=== PATIENT | female | born 1950 | race Hispanic/Latino ===

== ENCOUNTER 2017-05-24 19:14 | Inpatient (IN) | payer MEDICAID ==
[~2017-05-24] VITALS: Ht 152.4 cm; Wt 54.2 kg
[~2017-05-24 19:14] MED LIST: ESOM40CA PO; LINA145C PO; METF10004 PO; TYL3 PO
[2017-05-24 21:13] LABS: EOSINOPHILS % (AUTO) 0.4 % (0.0-8.0); HEMATOCRIT 32.1 % (36-48); LYMPHOCYTES % (AUTO) 12.4 % (21.0-51.0); MEAN CORPUSCULAR HEMOGLOBIN 31.8 pg (27.0-33.0); MEAN CORPUSCULAR HGB CONC 33.1 g/dL (32.0-36.0); MEAN CORPUSCULAR VOLUME 96.1 fL (79-99); MONOCYTES % (AUTO) 7.1 % (3.0-13.0); NEUTROPHILS % (AUTO) 79.1 % (40.0-77.0); PLATELET COUNT (AUTO) 447 K/uL (130-400); RED BLOOD CELL COUNT(AUTO) 3.34 MIL/uL (4.00-5.50); RED CELL DISTRIBUTION WIDTH 14.4 % (11.0-15.5); WHITE BLOOD COUNT (AUTO) 16.2 K/uL (4.8-10.8)
[2017-05-24 21:28] LABS: INR 0.89 (0.85-1.15); PARTIAL THROMBOPLASTIN TIME 31.8 SEC (26.3-35.5); PROTHROMBIN TIME 9.4 SEC (9.6-11.6)
[2017-05-24 21:41] LABS: ALBUMIN 2.8 g/dL (3.5-5.0); BILIRUBIN,TOTAL 0.8 mg/dL (0.2-1.0); CREATINE KINASE MB 0.8 ng/mL (0.5-3.6); POTASSIUM 4.4 mmol/L (3.5-5.1); TOTAL PROTEIN, SERUM 7.8 g/dL (6.0-8.3)
[2017-05-24] MEDS ORDERED: ONDANSETRON HCL 4 MG/2 ML VIAL ONE (22:54)
[2017-05-24] MEDS ORDERED: MORPHINE SULFATE 2 MG/ML 1ML SYG ONE (22:55)
[2017-05-24] MEDS ORDERED: SODIUM CHLORIDE 0.9% 500ML 500 ML IV ONE (22:55)
[2017-05-24] MEDS ORDERED: INSULIN HUMULIN R 100 UNIT/ML 3ML ONE (22:56)
[2017-05-25] VITALS (7 sets, daily range): BP systolic 133–184; BP diastolic 61–76
[2017-05-25 00:08] LABS: APPEARANCE,URINE Cloudy (CLEAR); BILIRUBIN,URINE Negative (NEGATIVE); COLOR,URINE Yellow (YELLOW); GLUCOSE, URINE (UA) >=1000 mg/dL (NEGATIVE); KETONES,URINE Negative (NEGATIVE); LEUKOCYTE ESTERASE ,URINE Negative (NEGATIVE); NITRATE,URINE Negative (NEGATIVE); OCCULT BLOOD,URINE Small (NEGATIVE); PH,URINE 5.5 (5.0-8.0); PROTEIN,URINE 300 (NEGATIVE)
[2017-05-25 00:14] LABS: EOSINOPHILS % (AUTO) 0.7 % (0.0-8.0); HEMATOCRIT 27.5 % (36-48); LYMPHOCYTES % (AUTO) 14.9 % (21.0-51.0); MEAN CORPUSCULAR HEMOGLOBIN 31.9 pg (27.0-33.0); MEAN CORPUSCULAR HGB CONC 33.3 g/dL (32.0-36.0); MEAN CORPUSCULAR VOLUME 95.8 fL (79-99); MONOCYTES % (AUTO) 7.9 % (3.0-13.0); NEUTROPHILS % (AUTO) 75.5 % (40.0-77.0); PLATELET COUNT (AUTO) 411 K/uL (130-400); RED BLOOD CELL COUNT(AUTO) 2.87 MIL/uL (4.00-5.50); RED CELL DISTRIBUTION WIDTH 14.5 % (11.0-15.5); WHITE BLOOD COUNT (AUTO) 17.3 K/uL (4.8-10.8)
[2017-05-25 00:17] LABS: BACTERIA,URINE Moderate /HPF (None Seen); SQUAMOUS EPITHELIAL CELL,UR Few /LPF (0-2)
[2017-05-25] MEDS ORDERED: CEFTRIAXONE SODIUM 1 GM ONE (01:43)
[2017-05-25] MEDS ORDERED: SODIUM CHLORIDE 0.9% 1000ML 1,000 ML IV ONE (01:44)
[2017-05-25] MEDS ORDERED: SODIUM CHLORIDE 0.9% 1000ML 1,000 ML IV SCH (02:33)
[2017-05-25] MEDS ORDERED: HYDRALAZINE HCL 20 MG/ML VIAL IV PRN (02:45)
[2017-05-25] MEDS ORDERED: LACTULOSE 20 GM/30 ML UDCUP PO PRN (02:45)
[2017-05-25] MEDS ORDERED: LIDOCAINE HCL-MPF 1% 2ML VIAL IVP PRN (02:45)
[2017-05-25] MEDS ORDERED: IPRATROPIUM/ALBUTEROL SULFATE 3 ML SOLUTION IH PRN (02:45)
[2017-05-25] MEDS ORDERED: POTASSIUM CHLORIDE 10% ELIXIR 20 MEQ/15 ML UDCUP PO PRN (02:45)
[2017-05-25] MEDS ORDERED: POTASSIUM CHLORIDE 20MEQ/100ML 100 ML IV PRN (02:45)
[2017-05-25] MEDS ORDERED: GLUCAGON 1MG KIT 1 MG ML IM PRN (02:45)
[2017-05-25] MEDS ORDERED: POTASSIUM CHLORIDE 20 MEQ ERTAB PO PRN (02:45)
[2017-05-25] MEDS ORDERED: CLONIDINE HCL 0.1 MG TABLET PO PRN (02:45)
[2017-05-25 03:58] LABS: BASOPHILS % (AUTO) 0.9 % (0.0-5.0); EOSINOPHILS % (AUTO) 1.3 % (0.0-8.0); LYMPHOCYTES % (AUTO) 17.3 % (21.0-51.0); MEAN CORPUSCULAR HEMOGLOBIN 31.6 pg (27.0-33.0); MEAN CORPUSCULAR VOLUME 95.7 fL (79-99); MONOCYTES % (AUTO) 7.4 % (3.0-13.0); NEUTROPHILS % (AUTO) 73.1 % (40.0-77.0); PLATELET COUNT (AUTO) 393 K/uL (130-400); RED BLOOD CELL COUNT(AUTO) 2.92 MIL/uL (4.00-5.50); RED CELL DISTRIBUTION WIDTH 14.3 % (11.0-15.5); WHITE BLOOD COUNT (AUTO) 15.5 K/uL (4.8-10.8)
[2017-05-25 04:02] LABS: CREATININE 0.9 mg/dL (0.5-1.5); POTASSIUM 3.8 mmol/L (3.5-5.1)
[2017-05-25 04:03] LABS: INR 0.92 (0.85-1.15); PARTIAL THROMBOPLASTIN TIME 33.1 SEC (26.3-35.5); PROTHROMBIN TIME 9.7 SEC (9.6-11.6)
[2017-05-25] MEDS: INSULIN HUMULIN R 100 UNIT/ML 3ML SQ SCH ×4 (06:50→20:15)
[2017-05-25] MEDS: FAMOTIDINE 20MG TAB 20 MG TAB PO SCH (08:39)
[2017-05-25] MEDS: ACETAMINOPHEN 325 MG TAB PO PRN (08:42)
[2017-05-25] MEDS ORDERED: ENOXAPARIN SODIUM 40 MG/0.4 ML SYRINGE SQ SCH (11:00)
[2017-05-25] MEDS ORDERED: GLIP10TA9 PO (11:15)
[2017-05-25] MEDS ORDERED: DONE5TAB33 PO (11:15)
[2017-05-25] MEDS ORDERED: ASPI-1197 PO (11:15)
[2017-05-25] MEDS ORDERED: DULO60CA63 PO (11:15)
[2017-05-25] MEDS ORDERED: ATOR40TA71 PO (11:15)
[2017-05-25] MEDS ORDERED: METO25TA6 PO (11:15)
[2017-05-25] MEDS ORDERED: LORA1TAB3 PO (11:15)
[2017-05-25] MEDS ORDERED: CEFAZOLIN SODIUM 1 GM VIAL IVP SCH (11:45)
[2017-05-25] MEDS: MORPHINE SULFATE 2 MG/ML 1ML SYG IVP PRN ×2 (12:46→16:57)
[2017-05-25] MEDS: METFORMIN HCL 500 MG TABLET PO SCH (16:57)
[2017-05-25] MEDS: ATORVASTATIN CALCIUM 40 MG TABLET PO SCH (20:07)
[2017-05-25] MEDS: DONEPEZIL HCL 5 MG TAB PO SCH (20:07)
[2017-05-25] MEDS: LORAZEPAM 1 MG TABLET PO SCH (20:07)
[2017-05-25] MEDS: METOPROLOL TARTRATE 25 MG TAB PO SCH (20:07)
[2017-05-26] VITALS (23 sets, daily range): BP systolic 124–193; BP diastolic 49–90
[2017-05-26 04:38] LABS: BASOPHILS % (AUTO) 0.3 % (0.0-5.0); EOSINOPHILS % (AUTO) 2.7 % (0.0-8.0); HEMATOCRIT 27.6 % (36-48); LYMPHOCYTES % (AUTO) 18.3 % (21.0-51.0); MEAN CORPUSCULAR HEMOGLOBIN 31.7 pg (27.0-33.0); MEAN CORPUSCULAR HGB CONC 33.1 g/dL (32.0-36.0); MONOCYTES % (AUTO) 5.8 % (3.0-13.0); NEUTROPHILS % (AUTO) 72.9 % (40.0-77.0); PLATELET COUNT (AUTO) 403 K/uL (130-400); RED BLOOD CELL COUNT(AUTO) 2.87 MIL/uL (4.00-5.50); RED CELL DISTRIBUTION WIDTH 14.6 % (11.0-15.5)
[2017-05-26 04:54] LABS: CREATININE 0.9 mg/dL (0.5-1.5); POTASSIUM 3.9 mmol/L (3.5-5.1)
[2017-05-26] MEDS ORDERED: CEFAZOLIN 2GM / 50 ML 50 ML IV ONE (06:00)
[2017-05-26] MEDS: INSULIN HUMULIN R 100 UNIT/ML 3ML SQ SCH ×4 (06:24→20:22)
[2017-05-26] MEDS: METFORMIN HCL 500 MG TABLET PO SCH ×2 (08:00→18:10)
[2017-05-26] MEDS: GLIPIZIDE XL 10MG TAB PO SCH (08:00)
[2017-05-26] MEDS ORDERED: SODIUM CHLORIDE 0.9% 1000ML 1,000 ML IV ONE (08:02)
[2017-05-26] MEDS ORDERED: FENTANYL CITRATE PF 50 MCG/1 ML 5ML AMP IV ONE (08:09)
[2017-05-26] MEDS ORDERED: PROPOFOL 10 MG/ML 20ML VIAL IV ONE (08:09)
[2017-05-26] MEDS ORDERED: ROPIVACAINE 0.5% 5MG/ML 30ML IJ ONE (08:15)
[2017-05-26] MEDS: FAMOTIDINE 20MG TAB 20 MG TAB PO SCH (09:00)
[2017-05-26] MEDS: LORAZEPAM 1 MG TABLET PO SCH ×2 (09:00→20:13)
[2017-05-26] MEDS: **HM**(Linaclotide (Linzess) 145 MCG) PO SCH (09:00)
[2017-05-26] MEDS: METOPROLOL TARTRATE 25 MG TAB PO SCH ×2 (09:00→20:13)
[2017-05-26] MEDS: DULOXETINE HCL 30 MG CAP PO SCH (09:00)
[2017-05-26] MEDS: ASPIRIN 81MG TAB.CHEW PO SCH (09:00)
[2017-05-26] MEDS ORDERED: ROCURONIUM BROMIDE 10MG/1ML 5ML VL ONE (09:44)
[2017-05-26] MEDS ORDERED: LIDOCAINE HCL-MPF 1% 5ML AMP IJ ONE (09:44)
[2017-05-26] MEDS ORDERED: EPHEDRINE SULFATE 50 MG/ML AMPULE ONE (09:45)
[2017-05-26] MEDS ORDERED: PHENYLEPHRINE HCL 10 MG/ML 1ML VIAL IV ONE (09:54)
[2017-05-26] MEDS ORDERED: GLYCOPYRROLATE 0.2 MG/ML 5 ML VIAL ONE (10:16)
[2017-05-26] MEDS ORDERED: NEOSTIGMINE METHYLSULFATE 1MG/ML IV ONE (10:16)
[2017-05-26] MEDS ORDERED: CEFTRIAXONE 1GM/D5W 50ML 50 ML IV SCH (11:45)
[2017-05-26] MEDS: CEFTRIAXONE SODIUM 1 GM IVP SCH (12:15)
[2017-05-26] MEDS ORDERED: PHARMACY COMMUNICATION MISC SCH (13:15)
[2017-05-26] MEDS: CEFAZOLIN SODIUM 1 GM VIAL IVP SCH (19:34)
[2017-05-26] MEDS: MORPHINE SULFATE 2 MG/ML 1ML SYG IVP PRN (19:34)
[2017-05-26] MEDS: ATORVASTATIN CALCIUM 40 MG TABLET PO SCH (20:13)
[2017-05-26] MEDS: DONEPEZIL HCL 5 MG TAB PO SCH (20:13)
[2017-05-26] MEDS: ONDANSETRON HCL 4 MG/2 ML VIAL IVP PRN (21:32)
[2017-05-27] VITALS: BP 118/64
[2017-05-27] MEDS: MORPHINE SULFATE 2 MG/ML 1ML SYG IVP PRN ×2 (00:49→06:56)
[2017-05-27] MEDS: CEFAZOLIN SODIUM 1 GM VIAL IVP SCH (03:26)
[2017-05-27 04:00] VITALS: BP 145/71
[2017-05-27 05:55] LABS: BASOPHILS % (AUTO) 0.5 % (0.0-5.0); HEMATOCRIT 22.6 % (36-48); LYMPHOCYTES % (AUTO) 11.9 % (21.0-51.0); MEAN CORPUSCULAR VOLUME 94.2 fL (79-99); NEUTROPHILS % (AUTO) 77.6 % (40.0-77.0); PLATELET COUNT (AUTO) 371 K/uL (130-400); RED CELL DISTRIBUTION WIDTH 15.1 % (11.0-15.5); WHITE BLOOD COUNT (AUTO) 17.6 K/uL (4.8-10.8)
[2017-05-27 06:08] LABS: CREATININE 1.1 mg/dL (0.5-1.5); POTASSIUM 3.9 mmol/L (3.5-5.1)
[2017-05-27] MEDS: INSULIN HUMULIN R 100 UNIT/ML 3ML SQ SCH ×4 (06:13→21:00)
[2017-05-27] MEDS: ONDANSETRON HCL 4 MG/2 ML VIAL IVP PRN (06:55)
[2017-05-27 07:00] VITALS: BP 132/71
[2017-05-27] MEDS: **HM**(Linaclotide (Linzess) 145 MCG) PO SCH (09:00)
[2017-05-27] MEDS: DULOXETINE HCL 30 MG CAP PO SCH (09:26)
[2017-05-27] MEDS: ASPIRIN 81MG TAB.CHEW PO SCH (09:26)
[2017-05-27] MEDS: METFORMIN HCL 500 MG TABLET PO SCH ×2 (09:26→17:04)
[2017-05-27] MEDS: FAMOTIDINE 20MG TAB 20 MG TAB PO SCH (09:26)
[2017-05-27] MEDS: GLIPIZIDE XL 10MG TAB PO SCH (09:26)
[2017-05-27] MEDS: LORAZEPAM 1 MG TABLET PO SCH ×2 (09:26→22:06)
[2017-05-27] MEDS: METOPROLOL TARTRATE 25 MG TAB PO SCH ×2 (09:26→22:06)
[2017-05-27 11:00] VITALS: BP 156/79
[2017-05-27] MEDS: CEFTRIAXONE SODIUM 1 GM IVP SCH (12:03)
[2017-05-27] MEDS: FE FUMARATE/FA/MV, MIN COMB#15 1 TAB PO SCH (12:03)
[2017-05-27 18:00] VITALS: BP 172/74
[2017-05-27] MEDS: TRAMADOL HCL 50 MG TABLET PO PRN (18:58)
[2017-05-27] MEDS: ATORVASTATIN CALCIUM 40 MG TABLET PO SCH (22:06)
[2017-05-27] MEDS: DONEPEZIL HCL 5 MG TAB PO SCH (22:06)
[2017-05-27 22:08] VITALS: BP 149/78
[2017-05-28] VITALS (7 sets, daily range): BP systolic 110–150; BP diastolic 61–71
[2017-05-28] MEDS: INSULIN HUMULIN R 100 UNIT/ML 3ML SQ SCH ×4 (05:32→20:31)
[2017-05-28 05:50] LABS: HEMATOCRIT 21.8 % (36-48); MEAN CORPUSCULAR HEMOGLOBIN 32.3 pg (27.0-33.0); MEAN CORPUSCULAR HGB CONC 34.5 g/dL (32.0-36.0); MEAN CORPUSCULAR VOLUME 93.7 fL (79-99); PLATELET COUNT (AUTO) 355 K/uL (130-400); RED BLOOD CELL COUNT(AUTO) 2.32 MIL/uL (4.00-5.50); RED CELL DISTRIBUTION WIDTH 14.6 % (11.0-15.5); WHITE BLOOD COUNT (AUTO) 17.3 K/uL (4.8-10.8)
[2017-05-28 06:08] LABS: CREATININE 0.9 mg/dL (0.5-1.5); POTASSIUM 3.8 mmol/L (3.5-5.1)
[2017-05-28] MEDS: **HM**(Linaclotide (Linzess) 145 MCG) PO SCH (09:00)
[2017-05-28] MEDS: FAMOTIDINE 20MG TAB 20 MG TAB PO SCH (09:00)
[2017-05-28] MEDS: FE FUMARATE/FA/MV, MIN COMB#15 1 TAB PO SCH ×2 (10:42→10:45)
[2017-05-28] MEDS: ENOXAPARIN SODIUM 40 MG/0.4 ML SYRINGE SQ SCH (10:42)
[2017-05-28] MEDS: TRAMADOL HCL 50 MG TABLET PO PRN ×2 (10:42→17:16)
[2017-05-28] MEDS: METOPROLOL TARTRATE 25 MG TAB PO SCH ×2 (10:43→20:27)
[2017-05-28] MEDS: LORAZEPAM 1 MG TABLET PO SCH ×2 (10:43→20:27)
[2017-05-28] MEDS: ASPIRIN 81MG TAB.CHEW PO SCH (10:43)
[2017-05-28] MEDS: DULOXETINE HCL 30 MG CAP PO SCH (10:43)
[2017-05-28] MEDS: GLIPIZIDE XL 10MG TAB PO SCH (10:46)
[2017-05-28] MEDS: METFORMIN HCL 500 MG TABLET PO SCH ×2 (10:46→17:16)
[2017-05-28] MEDS: LEVOFLOXACIN 500 MG/D5W 100 ML 100 ML IV SCH (11:59)
[2017-05-28] MEDS: DONEPEZIL HCL 5 MG TAB PO SCH (20:27)
[2017-05-28] MEDS: ATORVASTATIN CALCIUM 40 MG TABLET PO SCH (20:27)
[2017-05-28] MEDS: DEXTROSE 50%-WATER 50 ML DISP.SYRIN IV PRN (23:11)
[2017-05-29 03:00] VITALS: BP 133/67
[2017-05-29] MEDS: DEXTROSE 50%-WATER 50 ML DISP.SYRIN IV PRN (03:05)
[2017-05-29 05:04] LABS: HEMATOCRIT 22.8 % (36-48); MEAN CORPUSCULAR HEMOGLOBIN 31.2 pg (27.0-33.0); MEAN CORPUSCULAR HGB CONC 32.9 g/dL (32.0-36.0); MEAN CORPUSCULAR VOLUME 94.7 fL (79-99); PLATELET COUNT (AUTO) 406 K/uL (130-400); RED BLOOD CELL COUNT(AUTO) 2.41 MIL/uL (4.00-5.50); RED CELL DISTRIBUTION WIDTH 14.6 % (11.0-15.5); WHITE BLOOD COUNT (AUTO) 18.2 K/uL (4.8-10.8)
[2017-05-29 05:16] LABS: CREATININE 0.9 mg/dL (0.5-1.5); POTASSIUM 3.7 mmol/L (3.5-5.1)
[2017-05-29] MEDS: INSULIN HUMULIN R 100 UNIT/ML 3ML SQ SCH ×4 (07:30→21:00)
[2017-05-29] MEDS: GLIPIZIDE XL 10MG TAB PO SCH (08:00)
[2017-05-29] MEDS: METFORMIN HCL 500 MG TABLET PO SCH ×2 (08:00→16:29)
[2017-05-29] MEDS: FE FUMARATE/FA/MV, MIN COMB#15 1 TAB PO SCH ×2 (09:00→09:28)
[2017-05-29] MEDS: **HM**(Linaclotide (Linzess) 145 MCG) PO SCH (09:00)
[2017-05-29] MEDS: METOPROLOL TARTRATE 25 MG TAB PO SCH ×2 (09:27→22:07)
[2017-05-29] MEDS: ENOXAPARIN SODIUM 40 MG/0.4 ML SYRINGE SQ SCH (09:28)
[2017-05-29] MEDS: DULOXETINE HCL 30 MG CAP PO SCH (09:28)
[2017-05-29] MEDS: LORAZEPAM 1 MG TABLET PO SCH ×2 (09:28→22:07)
[2017-05-29] MEDS: ASPIRIN 81MG TAB.CHEW PO SCH (09:28)
[2017-05-29] MEDS: LEVOFLOXACIN 500 MG/D5W 100 ML 100 ML IV SCH (09:28)
[2017-05-29] MEDS: FAMOTIDINE 20MG TAB 20 MG TAB PO SCH (09:28)
[2017-05-29] MEDS ORDERED: HALOPERIDOL LACTATE 5 MG/ML VIAL IV PRN (11:00)
[2017-05-29 11:10] VITALS: BP 123/71
[2017-05-29] MEDS: NICOTINE 14 MG/ 24 HR PATCH TD SCH (13:51)
[2017-05-29 16:24] VITALS: BP 120/69
[2017-05-29] MEDS: FERROUS SULFATE 325 MG TABLET.DR PO SCH (16:32)
[2017-05-29 20:23] VITALS: BP 117/54
[2017-05-29] MEDS: DONEPEZIL HCL 5 MG TAB PO SCH (22:07)
[2017-05-29] MEDS: ATORVASTATIN CALCIUM 40 MG TABLET PO SCH (22:07)
[2017-05-30] VITALS (7 sets, daily range): BP systolic 110–151; BP diastolic 50–73
[2017-05-30 05:09] LABS: HEMATOCRIT 21.1 % (36-48); MEAN CORPUSCULAR HEMOGLOBIN 32.6 pg (27.0-33.0); MEAN CORPUSCULAR HGB CONC 34.7 g/dL (32.0-36.0); NUCLEATED RED BLOOD CELLS 0.1 % (0.0-0.19); PLATELET COUNT (AUTO) 420 K/uL (130-400); RED BLOOD CELL COUNT(AUTO) 2.24 MIL/uL (4.00-5.50); RED CELL DISTRIBUTION WIDTH 14.3 % (11.0-15.5); WHITE BLOOD COUNT (AUTO) 16.4 K/uL (4.8-10.8)
[2017-05-30 05:14] LABS: BAND NEUTROPHILS % (MANUAL) 5 % (0-2); EOSINOPHILS % (MANUAL) 8 % (1-6); LYMPHOCYTES % (MANUAL) 18 % (22-44); MAN.DIFF COMMENT-IMPRESSION MANUAL DIFFERENTIAL; MONOCYTES % (MANUAL) 9 % (2-9); SEGMENTED NEUTROPHILS % 60 % (40-70)
[2017-05-30 05:20] LABS: CREATININE 1.1 mg/dL (0.5-1.5); POTASSIUM 3.7 mmol/L (3.5-5.1)
[2017-05-30] MEDS: INSULIN HUMULIN R 100 UNIT/ML 3ML SQ SCH ×4 (07:30→21:00)
[2017-05-30] MEDS: GLIPIZIDE XL 10MG TAB PO SCH (08:00)
[2017-05-30] MEDS: METFORMIN HCL 500 MG TABLET PO SCH ×2 (08:00→17:48)
[2017-05-30] MEDS: FE FUMARATE/FA/MV, MIN COMB#15 1 TAB PO SCH ×2 (09:00→09:35)
[2017-05-30] MEDS: **HM**(Linaclotide (Linzess) 145 MCG) PO SCH (09:00)
[2017-05-30] MEDS: FERROUS SULFATE 325 MG TABLET.DR PO SCH ×2 (09:34→17:48)
[2017-05-30] MEDS: METOPROLOL TARTRATE 25 MG TAB PO SCH ×2 (09:34→20:59)
[2017-05-30] MEDS: ASPIRIN 81MG TAB.CHEW PO SCH (09:35)
[2017-05-30] MEDS: DULOXETINE HCL 30 MG CAP PO SCH (09:35)
[2017-05-30] MEDS: LEVOFLOXACIN 500 MG/D5W 100 ML 100 ML IV SCH (09:35)
[2017-05-30] MEDS: FAMOTIDINE 20MG TAB 20 MG TAB PO SCH (09:35)
[2017-05-30] MEDS: ENOXAPARIN SODIUM 40 MG/0.4 ML SYRINGE SQ SCH (09:36)
[2017-05-30] MEDS: NICOTINE 14 MG/ 24 HR PATCH TD SCH (09:36)
[2017-05-30] MEDS: LORAZEPAM 1 MG TABLET PO SCH ×2 (09:36→20:58)
[2017-05-30] MEDS: TRAMADOL HCL 50 MG TABLET PO PRN (09:37)
[2017-05-30] MEDS ORDERED: COMPOUND IV MISC 1 EACH IVSOLN MISC PRN (12:00)
[2017-05-30] MEDS: IRON SUCROSE COMPLEX 100 MG in SODIUM CHLORIDE 0.9% 50 ML IV SCH (12:34)
[2017-05-30] MEDS: DONEPEZIL HCL 5 MG TAB PO SCH (20:58)
[2017-05-30] MEDS: ATORVASTATIN CALCIUM 40 MG TABLET PO SCH (20:58)
[2017-05-31 04:31] VITALS: BP 125/60
[2017-05-31 05:24] LABS: HEMATOCRIT 23.1 % (36-48); MEAN CORPUSCULAR HEMOGLOBIN 31.3 pg (27.0-33.0); MEAN CORPUSCULAR HGB CONC 33.1 g/dL (32.0-36.0); MEAN CORPUSCULAR VOLUME 94.5 fL (79-99); PLATELET COUNT (AUTO) 531 K/uL (130-400); RED BLOOD CELL COUNT(AUTO) 2.44 MIL/uL (4.00-5.50); RED CELL DISTRIBUTION WIDTH 14.2 % (11.0-15.5); WHITE BLOOD COUNT (AUTO) 20.4 K/uL (4.8-10.8)
[2017-05-31] MEDS: INSULIN HUMULIN R 100 UNIT/ML 3ML SQ SCH ×4 (06:37→20:50)
[2017-05-31 07:00] VITALS: BP 114/46
[2017-05-31] MEDS: **HM**(Linaclotide (Linzess) 145 MCG) PO SCH (09:00)
[2017-05-31] MEDS: FE FUMARATE/FA/MV, MIN COMB#15 1 TAB PO SCH ×2 (09:00→09:07)
[2017-05-31] MEDS: TRAMADOL HCL 50 MG TABLET PO PRN (09:05)
[2017-05-31] MEDS: DULOXETINE HCL 30 MG CAP PO SCH (09:05)
[2017-05-31] MEDS: FAMOTIDINE 20MG TAB 20 MG TAB PO SCH (09:05)
[2017-05-31] MEDS: METFORMIN HCL 500 MG TABLET PO SCH ×2 (09:05→17:00)
[2017-05-31] MEDS: GLIPIZIDE XL 10MG TAB PO SCH (09:06)
[2017-05-31] MEDS: METOPROLOL TARTRATE 25 MG TAB PO SCH ×2 (09:07→20:47)
[2017-05-31] MEDS: ASPIRIN 81MG TAB.CHEW PO SCH (09:07)
[2017-05-31] MEDS: FERROUS SULFATE 325 MG TABLET.DR PO SCH ×2 (09:08→17:45)
[2017-05-31] MEDS: LORAZEPAM 1 MG TABLET PO SCH ×2 (09:08→20:47)
[2017-05-31] MEDS: IRON SUCROSE COMPLEX 100 MG in SODIUM CHLORIDE 0.9% 50 ML IV SCH (09:09)
[2017-05-31] MEDS: ENOXAPARIN SODIUM 40 MG/0.4 ML SYRINGE SQ SCH (09:09)
[2017-05-31] MEDS: LEVOFLOXACIN 500 MG/D5W 100 ML 100 ML IV SCH (09:09)
[2017-05-31 11:00] VITALS: BP 152/53
[2017-05-31 16:00] VITALS: BP 133/64
[2017-05-31] MEDS: NICOTINE 14 MG/ 24 HR PATCH TD SCH (17:45)
[2017-05-31 20:00] VITALS: BP 138/65
[2017-05-31] MEDS: DONEPEZIL HCL 5 MG TAB PO SCH (20:47)
[2017-05-31] MEDS: ATORVASTATIN CALCIUM 40 MG TABLET PO SCH (20:47)
[2017-06-01] VITALS (7 sets, daily range): BP systolic 114–153; BP diastolic 52–68
[2017-06-01 05:13] LABS: MEAN CORPUSCULAR HEMOGLOBIN 31.8 pg (27.0-33.0); MEAN CORPUSCULAR HGB CONC 33.7 g/dL (32.0-36.0); MEAN CORPUSCULAR VOLUME 94.5 fL (79-99); PLATELET COUNT (AUTO) 625 K/uL (130-400); RED BLOOD CELL COUNT(AUTO) 2.32 MIL/uL (4.00-5.50); RED CELL DISTRIBUTION WIDTH 14.4 % (11.0-15.5); WHITE BLOOD COUNT (AUTO) 23.1 K/uL (4.8-10.8)
[2017-06-01 05:28] LABS: BAND NEUTROPHILS % (MANUAL) 11 % (0-2); EOSINOPHILS % (MANUAL) 6 % (1-6); LYMPHOCYTES % (MANUAL) 17 % (22-44); MAN.DIFF COMMENT-IMPRESSION MANUAL DIFFERENTIAL; MONOCYTES % (MANUAL) 5 % (2-9); PLATELET MORPHOLOGY COMMENT INCREASED; SEGMENTED NEUTROPHILS % 61 % (40-70)
[2017-06-01 05:31] LABS: CREATININE 0.9 mg/dL (0.5-1.5); POTASSIUM 3.5 mmol/L (3.5-5.1)
[2017-06-01] MEDS: INSULIN HUMULIN R 100 UNIT/ML 3ML SQ SCH ×4 (06:03→20:42)
[2017-06-01] MEDS: FERROUS SULFATE 325 MG TABLET.DR PO SCH ×2 (08:36→17:50)
[2017-06-01] MEDS: FAMOTIDINE 20MG TAB 20 MG TAB PO SCH (08:36)
[2017-06-01] MEDS: LORAZEPAM 1 MG TABLET PO SCH ×2 (08:36→19:54)
[2017-06-01] MEDS: DULOXETINE HCL 30 MG CAP PO SCH (08:37)
[2017-06-01] MEDS: METFORMIN HCL 500 MG TABLET PO SCH ×2 (08:38→17:50)
[2017-06-01] MEDS: IRON SUCROSE COMPLEX 100 MG in SODIUM CHLORIDE 0.9% 50 ML IV SCH (08:39)
[2017-06-01] MEDS: FE FUMARATE/FA/MV, MIN COMB#15 1 TAB PO SCH ×2 (08:39→08:41)
[2017-06-01] MEDS: ASPIRIN 81MG TAB.CHEW PO SCH (08:39)
[2017-06-01] MEDS: METOPROLOL TARTRATE 25 MG TAB PO SCH ×2 (08:41→19:54)
[2017-06-01] MEDS: **HM**(Linaclotide (Linzess) 145 MCG) PO SCH (08:41)
[2017-06-01] MEDS: ENOXAPARIN SODIUM 40 MG/0.4 ML SYRINGE SQ SCH (08:43)
[2017-06-01] MEDS: LEVOFLOXACIN 500 MG/D5W 100 ML 100 ML IV SCH (08:44)
[2017-06-01] MEDS: NICOTINE 14 MG/ 24 HR PATCH TD SCH (08:46)
[2017-06-01] MEDS ORDERED: SODIUM CHLORIDE 0.9% 500ML 500 ML IV ONE (08:55)
[2017-06-01] MEDS: ACETAMINOPHEN 325 MG TAB PO PRN (08:57)
[2017-06-01] MEDS ORDERED: CEFEPIME 1GM+NS 50ML 50 ML IV SCH (11:00)
[2017-06-01] MEDS ORDERED: CEFEPIME HCL 1 GM VIAL IVP SCH (11:15)
[2017-06-01] MEDS: CEFEPIME HCL 1 GM VIAL IVP SCH ×2 (11:55→23:32)
[2017-06-01] MEDS: ATORVASTATIN CALCIUM 40 MG TABLET PO SCH (19:54)
[2017-06-01] MEDS: DONEPEZIL HCL 5 MG TAB PO SCH (19:54)
[2017-06-01] MEDS ORDERED: SODIUM CHLORIDE 0.9% 250 ML IV ONE (21:02)
[2017-06-02 04:00] VITALS: BP 146/61
[2017-06-02 05:04] LABS: HEMATOCRIT 30.6 % (36-48)
[2017-06-02] MEDS: INSULIN HUMULIN R 100 UNIT/ML 3ML SQ SCH (06:03)
[2017-06-02 07:00] VITALS: BP 129/54
[2017-06-02] MEDS: METOPROLOL TARTRATE 25 MG TAB PO SCH ×2 (08:54→19:50)
[2017-06-02] MEDS: ASPIRIN 81MG TAB.CHEW PO SCH (08:54)
[2017-06-02] MEDS: FERROUS SULFATE 325 MG TABLET.DR PO SCH ×2 (08:54→18:41)
[2017-06-02] MEDS: FE FUMARATE/FA/MV, MIN COMB#15 1 TAB PO SCH (08:54)
[2017-06-02] MEDS: DULOXETINE HCL 30 MG CAP PO SCH (08:55)
[2017-06-02] MEDS: LORAZEPAM 1 MG TABLET PO SCH ×2 (08:58→19:50)
[2017-06-02] MEDS: LEVOFLOXACIN 500 MG/D5W 100 ML 100 ML IV SCH (08:58)
[2017-06-02] MEDS: **HM**(Linaclotide (Linzess) 145 MCG) PO SCH (08:58)
[2017-06-02] MEDS: FAMOTIDINE 20MG TAB 20 MG TAB PO SCH (08:58)
[2017-06-02] MEDS: ENOXAPARIN SODIUM 40 MG/0.4 ML SYRINGE SQ SCH (08:59)
[2017-06-02] MEDS: NICOTINE 14 MG/ 24 HR PATCH TD SCH (08:59)
[2017-06-02 11:00] VITALS: BP 130/60
[2017-06-02] MEDS: OSELTAMIVIR PHOSPHATE 75 MG CAP PO SCH ×2 (11:20→19:50)
[2017-06-02] MEDS: CEFEPIME HCL 1 GM VIAL IVP SCH ×2 (11:20→23:34)
[2017-06-02 16:00] VITALS: BP 143/73
[2017-06-02] MEDS: ATORVASTATIN CALCIUM 40 MG TABLET PO SCH (19:50)
[2017-06-02] MEDS: DONEPEZIL HCL 5 MG TAB PO SCH (19:50)
[2017-06-02 20:00] VITALS: BP 152/53
[2017-06-03] VITALS: BP 157/65
[2017-06-03 04:00] VITALS: BP 163/72
[2017-06-03 05:33] LABS: MEAN CORPUSCULAR HEMOGLOBIN 31.5 pg (27.0-33.0); MEAN CORPUSCULAR HGB CONC 34.1 g/dL (32.0-36.0); MEAN CORPUSCULAR VOLUME 92.3 fL (79-99); PLATELET COUNT (AUTO) 716 K/uL (130-400); RED BLOOD CELL COUNT(AUTO) 3.14 MIL/uL (4.00-5.50); RED CELL DISTRIBUTION WIDTH 15.7 % (11.0-15.5); WHITE BLOOD COUNT (AUTO) 24.1 K/uL (4.8-10.8)
[2017-06-03 05:38] LABS: CREATININE 1.1 mg/dL (0.5-1.5); POTASSIUM 4.1 mmol/L (3.5-5.1)
[2017-06-03 08:23] VITALS: BP 160/75
[2017-06-03] MEDS: NICOTINE 14 MG/ 24 HR PATCH TD SCH (08:33)
[2017-06-03] MEDS: FE FUMARATE/FA/MV, MIN COMB#15 1 TAB PO SCH (08:33)
[2017-06-03] MEDS: METOPROLOL TARTRATE 25 MG TAB PO SCH (08:33)
[2017-06-03] MEDS: DULOXETINE HCL 30 MG CAP PO SCH (08:33)
[2017-06-03] MEDS: OSELTAMIVIR PHOSPHATE 75 MG CAP PO SCH (08:34)
[2017-06-03] MEDS: LORAZEPAM 1 MG TABLET PO SCH (08:34)
[2017-06-03] MEDS: FAMOTIDINE 20MG TAB 20 MG TAB PO SCH (08:34)
[2017-06-03] MEDS: ENOXAPARIN SODIUM 40 MG/0.4 ML SYRINGE SQ SCH (08:34)
[2017-06-03] MEDS: FERROUS SULFATE 325 MG TABLET.DR PO SCH (08:34)
[2017-06-03] MEDS: LEVOFLOXACIN 500 MG/D5W 100 ML 100 ML IV SCH (08:34)
[2017-06-03] MEDS: ASPIRIN 81MG TAB.CHEW PO SCH (08:34)
[2017-06-03] MEDS: **HM**(Linaclotide (Linzess) 145 MCG) PO SCH (09:00)
[2017-06-03] MEDS ORDERED: LEVO250T2 PO (09:02)
[2017-06-03] MEDS: CEFEPIME HCL 1 GM VIAL IVP SCH (11:49)
[2017-06-03] MEDS ORDERED: OSEL75 PO (14:41)
== END 2017-06-03 18:30 | disposition home or self-care (01) | DRG 301 ==
LOC: EDH 19:14 → EDHIP 19:15 → 4AH 23:51
PROVIDERS: ADMIT Internal Medicine; ATTEND Internal Medicine
PROC: 0SRR0JA Replacement of Right Hip Joint, Femoral Surface with Synthetic Substitute, Uncemented, Open Approach (ICD-10-PCS; principal; 2017-05-26 08:51)
PROC: 30233N1 Transfusion of Nonautologous Red Blood Cells into Peripheral Vein, Percutaneous Approach (ICD-10-PCS; 2017-05-26 08:51)
DX: S72.001A Fracture of unspecified part of neck of right femur, initial encounter for closed fracture (principal); E11.52 Type 2 diabetes mellitus with diabetic peripheral angiopathy with gangrene; E11.649 Type 2 diabetes mellitus with hypoglycemia without coma; C94.6 Myelodysplastic disease, not elsewhere classified; B96.1 Klebsiella pneumoniae [K. pneumoniae] as the cause of diseases classified elsewhere; S00.03XA Contusion of scalp, initial encounter; F03.90 Unspecified dementia, unspecified severity, without behavioral disturbance, psychotic disturbance, mood disturbance, and anxiety; E11.65 Type 2 diabetes mellitus with hyperglycemia; D64.9 Anemia, unspecified; E78.5 Hyperlipidemia, unspecified; J44.9 Chronic obstructive pulmonary disease, unspecified; N39.0 Urinary tract infection, site not specified; I10 Essential (primary) hypertension; G47.00 Insomnia, unspecified; F41.9 Anxiety disorder, unspecified; F17.210 Nicotine dependence, cigarettes, uncomplicated; F32.9 Major depressive disorder, single episode, unspecified; W01.0XXA Fall on same level from slipping, tripping and stumbling without subsequent striking against object, initial encounter; Z89.512 Acquired absence of left leg below knee; Z74.01 Bed confinement status; Z91.19 Patient's noncompliance with other medical treatment and regimen; Y93.89 Activity, other specified; Y92.89 Other specified places as the place of occurrence of the external cause; Y99.8 Other external cause status; Z83.3 Family history of diabetes mellitus
CPT/HCPCS: 36415; 36430; 70450; 70486; 71045; 72125; 72192; 73503; 73521; 73552; 80048; 80053; 81001; 82550; 82553; 82947; 82948; 83036; 83690; 84484; 85025; 85027; 85610; 85730; 86710; 86850; 86900; 86901; 86922; 87040; 87088; 87186; 87804; 88305; 88311; 93005; 93970; 94640; 94664; 97039; A4218; C1776; J0690; J0692; J0696; J1650; J1756; J1815; J1956; J2370; J2405; J2704; J2710; J2795; J3010; J3490; J7030; J7040; J7070; P9016

== ENCOUNTER 2017-06-21 19:29 | Emergency (ER) | payer MEDICAID ==
[~2017-06-21 19:29] MED LIST changes: +ASPI-1197 PO; +ATOR40TA71 PO; +DONE5TAB33 PO; +DULO60CA63 PO; -ESOM40CA PO; +GLIP10TA9 PO; +LEVO250T2 PO; +LORA1TAB3 PO; +METO25TA6 PO; +OSEL75 PO
== END 2017-06-21 22:31 | disposition home or self-care (01) ==
LOC: EDH 19:29
DX: T81.89XA Other complications of procedures, not elsewhere classified, initial encounter (principal); E11.9 Type 2 diabetes mellitus without complications; I10 Essential (primary) hypertension; Z98.890 Other specified postprocedural states; Z89.612 Acquired absence of left leg above knee
CPT/HCPCS: 73502

== ENCOUNTER 2017-07-04 21:20 | Inpatient (IN) | payer MEDICAID ==
[~2017-07-04] VITALS: Ht 149.9 cm; Wt 60.0 kg
[2017-07-04 22:27] LABS: BASOPHILS % (AUTO) 1.4 % (0.0-5.0); EOSINOPHILS % (AUTO) 1.7 % (0.0-8.0); HEMATOCRIT 29.6 % (36-48); LYMPHOCYTES % (AUTO) 21.7 % (21.0-51.0); MEAN CORPUSCULAR HEMOGLOBIN 32.1 pg (27.0-33.0); MEAN CORPUSCULAR HGB CONC 33.8 g/dL (32.0-36.0); MEAN CORPUSCULAR VOLUME 95.1 fL (79-99); MONOCYTES % (AUTO) 8.3 % (3.0-13.0); NEUTROPHILS % (AUTO) 66.9 % (40.0-77.0); PLATELET COUNT (AUTO) 496 K/uL (130-400); RED BLOOD CELL COUNT(AUTO) 3.11 MIL/uL (4.00-5.50); RED CELL DISTRIBUTION WIDTH 16.7 % (11.0-15.5); WHITE BLOOD COUNT (AUTO) 11.6 K/uL (4.8-10.8)
[2017-07-04 22:43] LABS: CREATININE 1.2 mg/dL (0.5-1.5); POTASSIUM 4.4 mmol/L (3.5-5.1)
[2017-07-04 22:47] LABS: ALBUMIN 2.6 g/dL (3.5-5.0); BILIRUBIN,TOTAL 0.4 mg/dL (0.2-1.0); TOTAL PROTEIN, SERUM 7.4 g/dL (6.0-8.3)
[2017-07-04 23:33] LABS: ERYTHROCYTE SEDIMENTATION RATE 105 MM/HR (0-15)
[2017-07-05] MEDS ORDERED: LORAZEPAM 2 MG/ML 1 ML VIAL ONE (00:38)
[2017-07-05] MEDS: SODIUM CHLORIDE 0.9% 1000ML 1,000 ML IV SCH (01:22)
[2017-07-05] MEDS ORDERED: DiphenhydrAMINE HCL 50 MG/ML VIAL IV PRN (01:30)
[2017-07-05] MEDS ORDERED: ONDANSETRON HCL 4 MG/2 ML VIAL IV PRN (01:30)
[2017-07-05] MEDS ORDERED: DEXTROSE 50%-WATER 50 ML DISP.SYRIN IV PRN (01:30)
[2017-07-05] MEDS ORDERED: GLUCAGON 1MG KIT 1 MG ML IM PRN (01:30)
[2017-07-05] MEDS ORDERED: POTASSIUM CHLORIDE 20 MEQ ERTAB PO PRN (01:30)
[2017-07-05] MEDS ORDERED: ALBUTEROL SULFATE 0.083% 2.5 MG/3 ML INH IH PRN (01:30)
[2017-07-05] MEDS ORDERED: LORAZEPAM 2 MG/ML 1 ML VIAL IVP PRN (01:30)
[2017-07-05] MEDS ORDERED: LACTULOSE 20 GM/30 ML UDCUP PO PRN (01:30)
[2017-07-05] MEDS ORDERED: HYDRALAZINE HCL 20 MG/ML VIAL IV PRN (01:30)
[2017-07-05] MEDS ORDERED: ACETAMINOPHEN 325 MG TAB PO PRN (01:30)
[2017-07-05] MEDS ORDERED: SODIUM CHLORIDE 0.9% 1000ML 1,000 ML IV ONE (03:51)
[2017-07-05 04:16] LABS: BASOPHILS % (AUTO) 1.1 % (0.0-5.0); EOSINOPHILS % (AUTO) 1.9 % (0.0-8.0); HEMATOCRIT 25.8 % (36-48); LYMPHOCYTES % (AUTO) 20.2 % (21.0-51.0); MEAN CORPUSCULAR HEMOGLOBIN 31.7 pg (27.0-33.0); MEAN CORPUSCULAR HGB CONC 33.4 g/dL (32.0-36.0); MEAN CORPUSCULAR VOLUME 94.8 fL (79-99); MONOCYTES % (AUTO) 7.4 % (3.0-13.0); NEUTROPHILS % (AUTO) 69.4 % (40.0-77.0); PLATELET COUNT (AUTO) 446 K/uL (130-400); RED BLOOD CELL COUNT(AUTO) 2.72 MIL/uL (4.00-5.50); RED CELL DISTRIBUTION WIDTH 16.3 % (11.0-15.5); WHITE BLOOD COUNT (AUTO) 10.8 K/uL (4.8-10.8)
[2017-07-05 04:22] LABS: POTASSIUM 3.9 mmol/L (3.5-5.1)
[2017-07-05] MEDS: INSULIN HUMULIN R 100 UNIT/ML 3ML SQ SCH ×4 (07:30→21:31)
[2017-07-05] MEDS: FAMOTIDINE 20MG TAB 20 MG TAB PO SCH ×2 (09:00→21:28)
[2017-07-05] MEDS ORDERED: ONDANSETRON HCL 4 MG/2 ML VIAL ONE (10:02)
[2017-07-05] MEDS ORDERED: MORPHINE SULFATE 2 MG/ML 1ML SYG ONE (10:02)
[2017-07-05] MEDS ORDERED: KETOROLAC TROMETHAMINE 30MG/ML ONE (10:12)
[2017-07-05 11:31] LABS: APPEARANCE,URINE Clear (CLEAR); BILIRUBIN,URINE Negative (NEGATIVE); COLOR,URINE Yellow (YELLOW); GLUCOSE, URINE (UA) 250 mg/dL (NEGATIVE); KETONES,URINE Negative (NEGATIVE); LEUKOCYTE ESTERASE ,URINE Negative (NEGATIVE); NITRATE,URINE Negative (NEGATIVE); OCCULT BLOOD,URINE Trace (NEGATIVE); PH,URINE 5.5 (5.0-8.0); PROTEIN,URINE 300 (NEGATIVE)
[2017-07-05] MEDS ORDERED: METOPROLOL TARTRATE 25 MG TAB ONE (11:41)
[2017-07-05 11:58] LABS: AMORPHOUS SEDIMENT,UR Many /LPF (None Seen); BACTERIA,URINE Rare /HPF (None Seen); RBC,URINE 0-1 /HPF (0-1); WBC,URINE None Seen /HPF (0-1)
[2017-07-05] MEDS: MORPHINE SULFATE 2 MG/ML 1ML SYG IVP PRN (16:03)
[2017-07-05 17:00] VITALS: BP 133/59
[2017-07-05 20:37] VITALS: BP 122/59
[2017-07-05] MEDS: LORAZEPAM 1 MG TABLET PO SCH (21:28)
[2017-07-05] MEDS: DONEPEZIL HCL 5 MG TAB PO SCH (21:28)
[2017-07-05] MEDS: METOPROLOL TARTRATE 25 MG TAB PO SCH (21:28)
[2017-07-06] VITALS (27 sets, daily range): BP systolic 119–184; BP diastolic 41–82
[2017-07-06 05:43] LABS: BASOPHILS % (AUTO) 0.4 % (0.0-5.0); HEMATOCRIT 25.5 % (36-48); LYMPHOCYTES % (AUTO) 18.8 % (21.0-51.0); MEAN CORPUSCULAR HEMOGLOBIN 32.1 pg (27.0-33.0); MEAN CORPUSCULAR HGB CONC 34.1 g/dL (32.0-36.0); MEAN CORPUSCULAR VOLUME 94.2 fL (79-99); MONOCYTES % (AUTO) 5.7 % (3.0-13.0); NEUTROPHILS % (AUTO) 74.1 % (40.0-77.0); PLATELET COUNT (AUTO) 488 K/uL (130-400); RED BLOOD CELL COUNT(AUTO) 2.71 MIL/uL (4.00-5.50); RED CELL DISTRIBUTION WIDTH 16.4 % (11.0-15.5); WHITE BLOOD COUNT (AUTO) 17.7 K/uL (4.8-10.8)
[2017-07-06 05:51] LABS: CREATININE 0.8 mg/dL (0.5-1.5); POTASSIUM 3.9 mmol/L (3.5-5.1)
[2017-07-06] MEDS: INSULIN HUMULIN R 100 UNIT/ML 3ML SQ SCH ×4 (06:45→21:50)
[2017-07-06] MEDS: VANCOMYCIN 1GM+NS 250ML 250 ML IV SCH ×2 (07:30→07:50)
[2017-07-06] MEDS ORDERED: PROPOFOL 10 MG/ML 20ML VIAL IV ONE (08:06)
[2017-07-06] MEDS ORDERED: FENTANYL CITRATE PF 50 MCG/1 ML 2ML VIAL ONE (08:34)
[2017-07-06] MEDS ORDERED: LABETALOL HCL 5 MG/ML 20ML VIAL IV ONE (09:58)
[2017-07-06] MEDS: METOPROLOL TARTRATE 25 MG TAB PO SCH (11:56)
[2017-07-06] MEDS: ATORVASTATIN CALCIUM 40 MG TABLET PO SCH (11:56)
[2017-07-06] MEDS: FAMOTIDINE 20MG TAB 20 MG TAB PO SCH ×2 (11:56→19:51)
[2017-07-06] MEDS: CEFEPIME HCL 1 GM VIAL IVP SCH ×2 (13:45→21:05)
[2017-07-06] MEDS ORDERED: CEFEPIME 1GM+NS 50ML 50 ML IV SCH (13:45)
[2017-07-06] MEDS ORDERED: MORPHINE SULFATE 4 MG/1ML SYG ONE (15:58)
[2017-07-06] MEDS: DONEPEZIL HCL 5 MG TAB PO SCH (19:51)
[2017-07-06] MEDS: LORAZEPAM 1 MG TABLET PO SCH (19:51)
[2017-07-06] MEDS: SODIUM CHLORIDE 0.9% 1000ML 1,000 ML IV SCH (19:52)
[2017-07-07] VITALS: BP 148/58
[2017-07-07] MEDS: METOPROLOL TARTRATE 25 MG TAB PO SCH ×3 (00:17→21:08)
[2017-07-07 03:55] VITALS: BP 135/51
[2017-07-07 05:49] LABS: BASOPHILS % (AUTO) 0.8 % (0.0-5.0); EOSINOPHILS % (AUTO) 1.6 % (0.0-8.0); HEMATOCRIT 23.7 % (36-48); LYMPHOCYTES % (AUTO) 22.6 % (21.0-51.0); MEAN CORPUSCULAR HGB CONC 32.4 g/dL (32.0-36.0); MEAN CORPUSCULAR VOLUME 95.7 fL (79-99); PLATELET COUNT (AUTO) 441 K/uL (130-400); RED BLOOD CELL COUNT(AUTO) 2.48 MIL/uL (4.00-5.50); RED CELL DISTRIBUTION WIDTH 16.5 % (11.0-15.5); WHITE BLOOD COUNT (AUTO) 12.4 K/uL (4.8-10.8)
[2017-07-07 06:14] LABS: CREATININE 0.7 mg/dL (0.5-1.5); POTASSIUM 3.7 mmol/L (3.5-5.1)
[2017-07-07] MEDS: CEFEPIME HCL 1 GM VIAL IVP SCH ×3 (06:26→21:07)
[2017-07-07] MEDS: INSULIN HUMULIN R 100 UNIT/ML 3ML SQ SCH ×4 (06:30→21:09)
[2017-07-07 07:00] VITALS: BP 137/62
[2017-07-07] MEDS: MORPHINE SULFATE 2 MG/ML 1ML SYG IVP PRN ×2 (07:06→16:31)
[2017-07-07] MEDS: ATORVASTATIN CALCIUM 40 MG TABLET PO SCH (08:33)
[2017-07-07] MEDS: LORAZEPAM 1 MG TABLET PO SCH ×2 (08:33→21:08)
[2017-07-07] MEDS: FAMOTIDINE 20MG TAB 20 MG TAB PO SCH ×2 (08:33→21:08)
[2017-07-07 11:03] VITALS: BP 182/77
[2017-07-07 15:00] VITALS: BP 157/66
[2017-07-07] MEDS: DONEPEZIL HCL 5 MG TAB PO SCH (21:07)
[2017-07-07 21:18] VITALS: BP 160/70
[2017-07-08] VITALS (7 sets, daily range): BP systolic 119–161; BP diastolic 52–82
[2017-07-08 06:02] LABS: HEMATOCRIT 22.1 % (36-48); MEAN CORPUSCULAR HEMOGLOBIN 31.9 pg (27.0-33.0); MEAN CORPUSCULAR HGB CONC 33.9 g/dL (32.0-36.0); PLATELET COUNT (AUTO) 415 K/uL (130-400); RED BLOOD CELL COUNT(AUTO) 2.35 MIL/uL (4.00-5.50); RED CELL DISTRIBUTION WIDTH 15.9 % (11.0-15.5); WHITE BLOOD COUNT (AUTO) 13.3 K/uL (4.8-10.8)
[2017-07-08] MEDS: CEFEPIME HCL 1 GM VIAL IVP SCH ×3 (06:15→22:17)
[2017-07-08] MEDS: INSULIN HUMULIN R 100 UNIT/ML 3ML SQ SCH ×4 (06:20→22:36)
[2017-07-08 06:23] LABS: CREATININE 0.7 mg/dL (0.5-1.5)
[2017-07-08] MEDS: LIDOCAINE HCL-MPF 1% 2ML VIAL IVP PRN (06:39)
[2017-07-08] MEDS: POTASSIUM CHLORIDE 20MEQ/100ML 100 ML IV PRN (06:40)
[2017-07-08] MEDS: LORAZEPAM 1 MG TABLET PO SCH ×2 (08:26→22:17)
[2017-07-08] MEDS: METOPROLOL TARTRATE 25 MG TAB PO SCH ×2 (08:27→22:17)
[2017-07-08] MEDS: ACETAMINOPHEN 325 MG TAB PO PRN (08:27)
[2017-07-08] MEDS: ATORVASTATIN CALCIUM 40 MG TABLET PO SCH (08:27)
[2017-07-08] MEDS: FAMOTIDINE 20MG TAB 20 MG TAB PO SCH ×2 (08:27→22:18)
[2017-07-08] MEDS: MORPHINE SULFATE 2 MG/ML 1ML SYG IVP PRN ×2 (08:28→11:44)
[2017-07-08] MEDS: POTASSIUM CHLORIDE 10% ELIXIR 20 MEQ/15 ML UDCUP PO PRN ×2 (08:28→11:43)
[2017-07-08 09:40] LABS: RETICULOCYTE % (AUTO) 2.04 % (0.42-2.23)
[2017-07-08 10:15] LABS: % IRON SATURATION 9.7 % (22-44)
[2017-07-08] MEDS: DULOXETINE HCL 30 MG CAP PO SCH (11:44)
[2017-07-08] MEDS: METFORMIN HCL 500 MG TABLET PO SCH (17:00)
[2017-07-08] MEDS: DONEPEZIL HCL 5 MG TAB PO SCH (22:18)
[2017-07-08] MEDS: ENOXAPARIN SODIUM 40 MG/0.4 ML SYRINGE SQ SCH (22:34)
[2017-07-09] VITALS (22 sets, daily range): BP systolic 132–169; BP diastolic 44–95
[2017-07-09] MEDS: INSULIN HUMULIN R 100 UNIT/ML 3ML SQ SCH ×4 (06:03→21:20)
[2017-07-09] MEDS: CEFEPIME HCL 1 GM VIAL IVP SCH ×4 (06:06→23:02)
[2017-07-09 06:08] LABS: HEMATOCRIT 23.4 % (36-48); MEAN CORPUSCULAR HEMOGLOBIN 30.6 pg (27.0-33.0); MEAN CORPUSCULAR HGB CONC 32.5 g/dL (32.0-36.0); MEAN CORPUSCULAR VOLUME 94.3 fL (79-99); PLATELET COUNT (AUTO) 481 K/uL (130-400); RED BLOOD CELL COUNT(AUTO) 2.48 MIL/uL (4.00-5.50); RED CELL DISTRIBUTION WIDTH 16.3 % (11.0-15.5); WHITE BLOOD COUNT (AUTO) 14.8 K/uL (4.8-10.8)
[2017-07-09 06:09] LABS: CREATININE 0.7 mg/dL (0.5-1.5); POTASSIUM 3.3 mmol/L (3.5-5.1)
[2017-07-09] MEDS: METOPROLOL TARTRATE 25 MG TAB PO SCH ×2 (06:10→21:22)
[2017-07-09] MEDS: LIDOCAINE HCL-MPF 1% 2ML VIAL IVP PRN (07:31)
[2017-07-09] MEDS: POTASSIUM CHLORIDE 20MEQ/100ML 100 ML IV PRN (07:31)
[2017-07-09] MEDS: DULOXETINE HCL 30 MG CAP PO SCH (07:38)
[2017-07-09] MEDS: LORAZEPAM 1 MG TABLET PO SCH ×2 (07:38→21:22)
[2017-07-09] MEDS: METFORMIN HCL 500 MG TABLET PO SCH ×2 (07:38→17:00)
[2017-07-09] MEDS: ATORVASTATIN CALCIUM 40 MG TABLET PO SCH (07:39)
[2017-07-09] MEDS: ENOXAPARIN SODIUM 40 MG/0.4 ML SYRINGE SQ SCH (07:39)
[2017-07-09] MEDS: FAMOTIDINE 20MG TAB 20 MG TAB PO SCH ×2 (07:39→21:22)
[2017-07-09] MEDS: MORPHINE SULFATE 2 MG/ML 1ML SYG IVP PRN (10:49)
[2017-07-09] MEDS ORDERED: SODIUM CHLORIDE 0.9% 1000ML 1,000 ML IV ONE (15:09)
[2017-07-09] MEDS ORDERED: LIDOCAINE PF 2% 5ML ABBOJECT ONE (15:23)
[2017-07-09] MEDS ORDERED: GLYCOPYRROLATE 0.2 MG/ML 5 ML VIAL ONE (15:23)
[2017-07-09] MEDS ORDERED: PROPOFOL 10 MG/ML 20ML VIAL IV ONE (15:23)
[2017-07-09] MEDS ORDERED: DEXAMETHASONE SOD PHOSPHATE 10MG/ML 1ML VIAL ONE (15:23)
[2017-07-09] MEDS ORDERED: FENTANYL CITRATE PF 50 MCG/1 ML 2ML VIAL ONE (15:24)
[2017-07-09] MEDS ORDERED: MIDAZOLAM HCL 1 MG/ML 2ML VIAL ONE (15:24)
[2017-07-09] MEDS ORDERED: EPHEDRINE SULFATE 50 MG/ML AMPULE ONE (15:48)
[2017-07-09] MEDS ORDERED: VANCOMYCIN HCL 1 GM VIAL ONE (16:05)
[2017-07-09] MEDS ORDERED: MEPERIDINE-PF 25 MG/ML SYG ONE (17:23)
[2017-07-09] MEDS: DONEPEZIL HCL 5 MG TAB PO SCH (21:22)
[2017-07-10] VITALS (7 sets, daily range): BP systolic 116–145; BP diastolic 50–64
[2017-07-10 05:24] LABS: HEMATOCRIT 23.7 % (36-48); MEAN CORPUSCULAR HGB CONC 33.3 g/dL (32.0-36.0); MEAN CORPUSCULAR VOLUME 93.2 fL (79-99); NUCLEATED RED BLOOD CELLS 0.1 % (0.0-0.19); PLATELET COUNT (AUTO) 513 K/uL (130-400); RED BLOOD CELL COUNT(AUTO) 2.54 MIL/uL (4.00-5.50); RED CELL DISTRIBUTION WIDTH 15.8 % (11.0-15.5); WHITE BLOOD COUNT (AUTO) 16.2 K/uL (4.8-10.8)
[2017-07-10 05:30] LABS: CREATININE 0.8 mg/dL (0.5-1.5); POTASSIUM 3.4 mmol/L (3.5-5.1)
[2017-07-10] MEDS: INSULIN HUMULIN R 100 UNIT/ML 3ML SQ SCH ×4 (06:26→20:54)
[2017-07-10] MEDS: CEFEPIME HCL 1 GM VIAL IVP SCH (06:26)
[2017-07-10] MEDS: ENOXAPARIN SODIUM 40 MG/0.4 ML SYRINGE SQ SCH (08:45)
[2017-07-10] MEDS: ATORVASTATIN CALCIUM 40 MG TABLET PO SCH (08:45)
[2017-07-10] MEDS: LORAZEPAM 1 MG TABLET PO SCH ×2 (08:45→20:32)
[2017-07-10] MEDS: FAMOTIDINE 20MG TAB 20 MG TAB PO SCH ×2 (08:45→20:32)
[2017-07-10] MEDS: METOPROLOL TARTRATE 25 MG TAB PO SCH ×2 (08:45→20:32)
[2017-07-10] MEDS: DULOXETINE HCL 30 MG CAP PO SCH (08:45)
[2017-07-10] MEDS: METFORMIN HCL 500 MG TABLET PO SCH ×2 (08:45→17:16)
[2017-07-10] MEDS ORDERED: COMPOUND IV MISC 1 EACH IVSOLN MISC PRN (10:15)
[2017-07-10] MEDS ORDERED: MEROPENEM 1GM IVPB PREMIXED 1 GM IV SCH (15:30)
[2017-07-10 16:08] LABS: INR 0.99 (0.85-1.15); PARTIAL THROMBOPLASTIN TIME 41.1 SEC (26.3-35.5); PROTHROMBIN TIME 10.4 SEC (9.6-11.6)
[2017-07-10] MEDS: IRON SUCROSE COMPLEX 100 MG in SODIUM CHLORIDE 0.9% 50 ML IV SCH (16:52)
[2017-07-10] MEDS: MEROPENEM 1 GM VIAL IVP SCH ×2 (16:53→23:35)
[2017-07-10] MEDS ORDERED: ACETAMINOPHEN 325 MG TAB PO ONE (19:29)
[2017-07-10] MEDS: DONEPEZIL HCL 5 MG TAB PO SCH (20:32)
[2017-07-10] MEDS: ACETAMINOPHEN 325 MG TAB PO PRN (20:33)
[2017-07-11 04:36] VITALS: BP 131/55
[2017-07-11 05:03] LABS: HEMATOCRIT 23.4 % (36-48); MEAN CORPUSCULAR HEMOGLOBIN 31.5 pg (27.0-33.0); MEAN CORPUSCULAR VOLUME 92.8 fL (79-99); PLATELET COUNT (AUTO) 541 K/uL (130-400); RED BLOOD CELL COUNT(AUTO) 2.52 MIL/uL (4.00-5.50); WHITE BLOOD COUNT (AUTO) 13.3 K/uL (4.8-10.8)
[2017-07-11 05:34] LABS: CREATININE 1.1 mg/dL (0.5-1.5); POTASSIUM 3.5 mmol/L (3.5-5.1)
[2017-07-11] MEDS: INSULIN HUMULIN R 100 UNIT/ML 3ML SQ SCH ×4 (05:59→23:19)
[2017-07-11] MEDS: POTASSIUM CHLORIDE 10% ELIXIR 20 MEQ/15 ML UDCUP PO PRN (06:28)
[2017-07-11 08:10] VITALS: BP 118/59
[2017-07-11] MEDS: ENOXAPARIN SODIUM 40 MG/0.4 ML SYRINGE SQ SCH (10:05)
[2017-07-11] MEDS: DULOXETINE HCL 30 MG CAP PO SCH (10:06)
[2017-07-11] MEDS: IRON SUCROSE COMPLEX 100 MG in SODIUM CHLORIDE 0.9% 50 ML IV SCH (10:06)
[2017-07-11] MEDS: MEROPENEM 1 GM VIAL IVP SCH ×3 (10:06→23:21)
[2017-07-11] MEDS: FAMOTIDINE 20MG TAB 20 MG TAB PO SCH ×2 (10:06→20:37)
[2017-07-11] MEDS: LORAZEPAM 1 MG TABLET PO SCH ×2 (10:07→20:37)
[2017-07-11] MEDS: METFORMIN HCL 500 MG TABLET PO SCH ×2 (10:07→16:13)
[2017-07-11] MEDS: ATORVASTATIN CALCIUM 40 MG TABLET PO SCH (10:07)
[2017-07-11] MEDS: METOPROLOL TARTRATE 25 MG TAB PO SCH ×2 (10:08→20:37)
[2017-07-11 11:32] VITALS: BP 141/75
[2017-07-11] MEDS: POTASSIUM CHLORIDE 20MEQ/100ML 100 ML IV PRN (14:46)
[2017-07-11] MEDS: LIDOCAINE HCL-MPF 1% 2ML VIAL IVP PRN (14:46)
[2017-07-11] MEDS: MORPHINE SULFATE 2 MG/ML 1ML SYG IVP PRN (15:59)
[2017-07-11 16:04] VITALS: BP 136/75
[2017-07-11 19:40] VITALS: BP 120/65
[2017-07-11] MEDS: DONEPEZIL HCL 5 MG TAB PO SCH (20:38)
[2017-07-11 23:40] VITALS: BP 120/87
[2017-07-12 04:26] VITALS: BP 132/59
[2017-07-12] MEDS: INSULIN HUMULIN R 100 UNIT/ML 3ML SQ SCH ×3 (06:55→16:30)
[2017-07-12 08:00] VITALS: BP 188/95
[2017-07-12] MEDS: METFORMIN HCL 500 MG TABLET PO SCH ×2 (08:00→17:00)
[2017-07-12] MEDS: LORAZEPAM 1 MG TABLET PO SCH (08:10)
[2017-07-12] MEDS: DULOXETINE HCL 30 MG CAP PO SCH (08:11)
[2017-07-12] MEDS: ENOXAPARIN SODIUM 40 MG/0.4 ML SYRINGE SQ SCH (08:12)
[2017-07-12] MEDS: FAMOTIDINE 20MG TAB 20 MG TAB PO SCH (08:12)
[2017-07-12] MEDS: ATORVASTATIN CALCIUM 40 MG TABLET PO SCH (08:12)
[2017-07-12] MEDS: METOPROLOL TARTRATE 25 MG TAB PO SCH (09:00)
[2017-07-12] MEDS ORDERED: CEFEPIME HCL 1 GM VIAL ONE (10:28)
[2017-07-12] MEDS: IRON SUCROSE COMPLEX 100 MG in SODIUM CHLORIDE 0.9% 50 ML IV SCH (10:31)
[2017-07-12] MEDS: MEROPENEM 1 GM VIAL IVP SCH ×2 (10:35→16:30)
[2017-07-12 11:44] VITALS: BP 114/82
[2017-07-12 13:38] LABS: HEMATOCRIT 25.8 % (36-48); MEAN CORPUSCULAR HEMOGLOBIN 30.5 pg (27.0-33.0); MEAN CORPUSCULAR HGB CONC 32.9 g/dL (32.0-36.0); MEAN CORPUSCULAR VOLUME 92.6 fL (79-99); NUCLEATED RED BLOOD CELLS 0.1 % (0.0-0.19); PLATELET COUNT (AUTO) 584 K/uL (130-400); RED BLOOD CELL COUNT(AUTO) 2.78 MIL/uL (4.00-5.50); RED CELL DISTRIBUTION WIDTH 16.1 % (11.0-15.5); WHITE BLOOD COUNT (AUTO) 13.3 K/uL (4.8-10.8)
[2017-07-12] MEDS ORDERED: MORPHINE SULFATE 4 MG/1ML SYG ONE (15:32)
[2017-07-12] MEDS ORDERED: MORPHINE SULFATE 4 MG/1ML SYG IV ONE (15:45)
[2017-07-12 16:08] VITALS: BP 144/76
[2017-07-12 19:46] VITALS: BP 158/76
== END 2017-07-12 21:50 | DRG 711 ==
LOC: EDH 21:20 → EDHIP 21:21 → 4BH 07-05 15:20
PROVIDERS: ADMIT Internal Medicine; ATTEND Internal Medicine
PROC: 0SB90ZZ Excision of Right Hip Joint, Open Approach (ICD-10-PCS; 2017-07-06)
PROC: 02HV33Z Insertion of Infusion Device into Superior Vena Cava, Percutaneous Approach (ICD-10-PCS; principal; 2017-07-06 08:37)
PROC: 0SB90ZZ Excision of Right Hip Joint, Open Approach (ICD-10-PCS; 2017-07-10)
DX: T81.4XXA Infection following a procedure, initial encounter (principal); G93.41 Metabolic encephalopathy; T81.30XA Disruption of wound, unspecified, initial encounter; T84.020A Dislocation of internal right hip prosthesis, initial encounter; E11.65 Type 2 diabetes mellitus with hyperglycemia; F03.90 Unspecified dementia, unspecified severity, without behavioral disturbance, psychotic disturbance, mood disturbance, and anxiety; E44.1 Mild protein-calorie malnutrition; J44.9 Chronic obstructive pulmonary disease, unspecified; D64.9 Anemia, unspecified; E86.0 Dehydration; F32.9 Major depressive disorder, single episode, unspecified; I10 Essential (primary) hypertension; D72.829 Elevated white blood cell count, unspecified; E78.5 Hyperlipidemia, unspecified; F41.9 Anxiety disorder, unspecified; K27.9 Peptic ulcer, site unspecified, unspecified as acute or chronic, without hemorrhage or perforation; Y79.2 Prosthetic and other implants, materials and accessory orthopedic devices associated with adverse incidents; Z16.24 Resistance to multiple antibiotics; Z87.891 Personal history of nicotine dependence; Z89.512 Acquired absence of left leg below knee
CPT/HCPCS: 36415; 71045; 80048; 80053; 81001; 82607; 82728; 82746; 82948; 83605; 84132; 85025; 85027; 85610; 85651; 85730; 86141; 87040; 87070; 87076; 87077; 87088; 87186; 87205; 88304; 88311; 93005; 94664; 97039; A4218; A4606; C1894; J0692; J1100; J1650; J1756; J1815; J1885; J2001; J2060; J2175; J2185; J2250; J2270; J2405; J2704; J3010; J3370; J3480; J3490; J7030; J7070

== ENCOUNTER 2018-11-01 04:09 | Emergency (ER) | payer MEDICAID ==
[~2018-11-01 04:09] MED LIST changes: -DULO60CA63 PO; +DULO60CA64 PO; +METF-446 PO; -METF10004 PO
[2018-11-01] MEDS ORDERED: EPINEPHRINE 0.1 MG/ML 10 ML SYG IVP ONE (04:13)
[2018-11-01] MEDS ORDERED: SODIUM BICARB 8.4% 50ML SYRINGE IVP ONE (04:13)
== END 2018-11-01 07:27 | disposition expired ==
LOC: EDH 04:12
DX: I46.9 Cardiac arrest, cause unspecified (principal); I10 Essential (primary) hypertension; E11.9 Type 2 diabetes mellitus without complications; F32.9 Major depressive disorder, single episode, unspecified
CPT/HCPCS: 92950; 99291; J0171; J3490